=== PATIENT | male | born 1935 | race Caucasian/White ===

== ENCOUNTER 2020-09-27 10:03 | Day surgery (SDC) | payer MEDICARE ==
[~2020-09-27] VITALS: Ht 175.3 cm; Wt 85.3 kg
[~2020-09-27 10:03] MED LIST: ALENDRONATE70 MG PO; AMLODIPINE2.5 MG PO; AMLODIPINE5 MG PO; ASPIRIN 8181 MG PO; ASPIRIN81 MG PO; CALCIUM500 M2 PO; FLUARIX QUADRIV1 IN1 IM; FLUZONE1 M1 IM; HYDROXYZ HCL25 MG PO; LIPITOR10 M1 PO; LISINOPRIL20 MG PO; LISINOPRIL40 MG PO; MACULAR HEALTH1 CAP PO; MULTI VIT PO; MULTIVITAMI9 PO; OMEPRAZOLE20 MG PO; PNEUMOVAX 23 IM; PRADAXA75 MG PO; PREDNISONE10 MG PO; RED YEAST XX; STERAPRED DS10 MG PO; VITAMIN B-12250 MCG OR; VITAMIN C1000 MG OR; VITAMIN D1000 UNIT OR; XALATAN 0.005%2.5 ML OU; [UNRECOGNIZED DRUG - OTHER] PO
[2020-09-27 13:20] VITALS: BP 150/72
== END 2020-09-27 13:15 | disposition home or self-care (01) ==
LOC: ENDO 10:03
PROVIDERS: ATTEND Surgery
PROC: 0DJ08ZZ Inspection of Upper Intestinal Tract, Via Natural or Artificial Opening Endoscopic (ICD-10-PCS; principal; 2020-09-27)
DX: R13.10 Dysphagia, unspecified (principal); K44.9 Diaphragmatic hernia without obstruction or gangrene; I48.91 Unspecified atrial fibrillation; I10 Essential (primary) hypertension; Z20.828 Contact with and (suspected) exposure to other viral communicable diseases